=== PATIENT | female | born 1990 | race Caucasian/White ===

== ENCOUNTER 2021-12-20 19:00 | Emergency (ER) | payer OTHER, SELFPAY ==
--- OUTSIDE RECORDS SUMMARY | 2021-12-20 19:03 | XMS REPORT | Continuity of Care Document ---
:1990 Author Organization [facility] t Address [address] [place] [address] Care Team Providers Name Role Phone BOOKER Attending Clinician Unavailable DENIS Attending Clinician Unavailable DIRECTOR OF CUSTOMER ACQUISITION Attending Clinician Unavailable DIRECTOR OF CUSTOMER ACQUISITION Attending Clinician Unavailable Problems Condition Condition Condition Status Onset Resolution Last Treating Co mments Source Name Details Category Date Date Treatment Clinician Date Amenorrhea Amenorrhea Problem Active U T HL7.CCDAR2 Physic i ans Nausea and Nausea and Problem Active U T vomiting vomiting HL7.CCDAR2 Ph ysici in in ans Encounter Encounter Problem Active UT for for HL7.CCDAR2 Physic i confirmati confirmati an s on of on of test test result result with with physical physical examinatio examinatio n n Vaginal Vaginal Problem Active UT discharge discharge HL7.CCDAR2 Physici ans HGSIL on HGSIL on Problem Active UT Pap smear Pap smear HL7.CCDAR2 Physici ans Left knee Left knee Problem Active UT pain pain HL7.CCDAR2 Physic i ans Pes Pes Problem Active UT anserinus anserinus HL7.CCDAR2 Physici tendinitis tendinitis an s of left of left lower lower extremity extremity Instabilit Instabilit Problem Active U T y of left y of left HL7.CCDAR2 Physici knee joint knee joint an s Encounter Encounter Problem Active UT for for HL7.CCDAR2 Physic i supervisio supervisio an s n of other n of other normal normal , , third third trimester trimester Vaginal Vaginal Problem Active UT dryness dryness HL7.CCDAR2 Phys ici ans Genital Genital Problem Active UT warts warts HL7.CCDAR2 Physic i ans History of History of Problem Active U T HL7.CCDAR2 Ph ysici delivery delivery ans Problem Active U T care care HL7.CCDAR2 Physic i following following ans delivery delivery Problem Active U T anxiety anxiety HL7.CCDAR2 Phys ici ans Allergies, Adverse Reactions, Alerts This patient has no known allergies or adverse reactions. Social History Smoking Status Start Date Stop Date Source Former smoker [facility] Medications Ordered Filled Start Stop Current Ordering Indication Dosage Frequency Signature Comments Components Source Medication Medication Date Date Medication? Clinician (SIG) Name Name Esckathi Tuckeropra 2017-06 Yes COMFORT 1 QD TAKE 1 UT m Oxalate m Oxalate 2-10 UGHANZE TABLET Physici 10 MG Oral 10 MG Oral 00:00: M.D. DAILY. ans Tablet Tablet 00 Podofilox Podofilox Yes COMFORT Q0.5D APPLY UT 0.5 % 0.5 % 9-14 UGHANZE EVERY 12 Physic i External External 00:00: M.D. HOURS FOR ans Solution Solution 00 3 DAYS, STOP FOR 4 DAYS, THEN REPEAT CYCLE UP TO 4 TIMES Yes UT TABS TABS Physici ans Vital Signs Vital Name Observation Time Observation Value Comments Source BP Systolic 2018-06-06 09:21:00 124 mm[Hg] Location: RUE; [facility] sicians Position: Sitting BP Diastolic 2018-06-06 09:21:00 64 mm[Hg] [facility]: [facility]; [facility] Position: Sitting Height 2018-06-06 09:21:00 63 [in_us] [facility] Weight 2018-06-06 09:21:00 234 [lb_av] [facility] Body Mass Index 2018-06-06 09:21:00 41.45 kg/m2 [facility] Calculated Temperature 2018-06-06 09:21:00 98 [degF] Method: Oral [facility] Heart Rate 2018-06-06 09:21:00 63 /min [facility] O2 SAT 2018-06-06 09:21:00 99 % [facility] Body Mass Index 2018-05-27 11:33:00 41.63 kg/m2 [facility] Calculated Temperature 2018-05-27 11:33:00 98.7 [degF] Method: Oral [facility] Heart Rate 2018-05-27 11:33:00 97 /min [facility] O2 SAT 2018-05-27 11:33:00 99 % [facility] BP Systolic 2018-05-27 11:33:00 106 mm[Hg] [facility]; [facility] Position: Sitting BP Diastolic 2018-05-27 11:33:00 60 mm[Hg] [facility]; [facility] Position: Sitting Height 2018-05-27 11:33:00 63 [in_us] [facility] Weight 2018-05-27 11:33:00 235 [lb_av] [facility] BP Systolic 2018-04-18 11:43:00 118 mm[Hg] [facility]: LUE; [facility] Position: Sitting BP Diastolic 2018-04-18 11:43:00 72 mm[Hg] [facility]UE; [facility] Position: Sitting Height 2018-04-18 11:43:00 63 [in_us] [facility] Weight 2018-04-18 11:43:00 258.1875 [lb_av] [facility] Body Mass Index 2018-04-18 11:43:00 45.74 kg/m2 [facility] Calculated BP Systolic 2018-04-08 08:42:00 126 mm[Hg] [facility]: [facility]UE; [facility] Position: Sitting BP Diastolic 2018-04-08 08:42:00 78 mm[Hg] [facility]: RUE; [facility] Position: Sitting Height 2018-04-08 08:42:00 63 [in_us] [facility] Weight 2018-04-08 08:42:00 249 [lb_av] [facility] Body Mass Index 2018-04-08 08:42:00 44.11 kg/m2 [facility] Calculated BP Systolic 2018-04-01 08:43:00 134 mm[Hg] [facility]: LUE; [facility] Position: Sitting BP Diastolic 2018-04-01 08:43:00 74 mm[Hg] [facility]: L[facility]; [facility] Position: Sitting Height 2018-04-01 08:43:00 63 [in_us] [facility] Weight 2018-04-01 08:43:00 247.375 [lb_av] [facility] Body Mass Index 2018-04-01 08:43:00 43.82 kg/m2 [facility] Calculated BP Systolic 2018-03-25 15:04:00 120 mm[Hg] Location: LUE; [facility] Position: Sitting BP Diastolic 2018-03-25 15:04:00 80 mm[Hg] [facility]: [facility]; [facility] Position: Sitting Height 2018-03-25 15:04:00 63 [in_us] [facility] Weight 2018-03-25 15:04:00 248 [lb_av] [facility] Body Mass Index 2018-03-25 15:04:00 43.93 kg/m2 [facility] Calculated BP Systolic 2018-03-11 11:15:00 116 mm[Hg] [facility]: L[facility]; [facility] Position: Supine BP Diastolic 2018-03-11 11:15:00 72 mm[Hg] [facility]; [facility] Position: Supine Height 2018-03-11 11:15:00 63 [in_us] [facility] Weight 2018-03-11 11:15:00 247 [lb_av] [facility] Body Mass Index 2018-03-11 11:15:00 43.75 kg/m2 [facility] Calculated BP Systolic 2018-01-28 08:22:00 128 mm[Hg] [facility]: LUE; [facility] Position: Sitting BP Diastolic 2018-01-28 08:22:00 78 mm[Hg] Location: LUE; [facility] Position: Sitting Height 2018-01-28 08:22:00 63 [in_us] [facility] Weight 2018-01-28 08:22:00 251 [lb_av] [facility] Body Mass Index 2018-01-28 08:22:00 44.46 kg/m2 [facility] Calculated BP Systolic 2017-12-31 08:32:00 124 mm[Hg] Location: RUE; [facility] Position: Sitting BP Diastolic 2017-12-31 08:32:00 62 mm[Hg] [facility]: [facility]UE; [facility] Position: Sitting Height 2017-12-31 08:32:00 63 [in_us] [facility] Weight 2017-12-31 08:32:00 252.6 [lb_av] [facility] Body Mass Index 2017-12-31 08:32:00 44.75 kg/m2 [facility] Calculated Temperature 2017-12-31 08:32:00 98.2 [degF] Method: Oral [facility] BP Systolic 2017-12-03 08:42:00 120 mm[Hg] [facility]: L[facility]; [facility] Position: Sitting BP Diastolic 2017-12-03 08:42:00 74 mm[Hg] [facility]: [facility]; [facility] Position: Sitting Height 2017-12-03 08:42:00 63 [in_us] [facility] Weight 2017-12-03 08:42:00 247.25 [lb_av] [facility] Body Mass Index 2017-12-03 08:42:00 43.8 kg/m2 [facility] Calculated BP Systolic 2017-11-05 08:42:00 130 mm[Hg] Location: LUE; [facility] Position: Sitting BP Diastolic 2017-11-05 08:42:00 80 mm[Hg] [facility]: [facility]; [facility] Position: Sitting Height 2017-11-05 08:42:00 63 [in_us] [facility] Weight 2017-11-05 08:42:00 247 [lb_av] [facility] Body Mass Index 2017-11-05 08:42:00 43.75 kg/m2 [facility] Calculated Temperature 2017-11-05 08:42:00 98.7 [degF] Method: Oral [facility] BP Systolic 2017-10-08 10:16:00 126 mm[Hg] Location: RUE; [facility] Position: Sitting BP Diastolic 2017-10-08 10:16:00 80 mm[Hg] [facility]: [facility]UE; [facility] Position: Sitting Height 2017-10-08 10:16:00 63 [in_us] [facility] Weight 2017-10-08 10:16:00 251 [lb_av] [facility] Body Mass Index 2017-10-08 10:16:00 44.46 kg/m2 [facility] Calculated Temperature 2017-10-08 10:16:00 98.7 [degF] Method: Oral [facility] BP Systolic 2017-10-05 14:55:00 118 mm[Hg] [facility]: LUE; [facility] Position: Sitting BP Diastolic 2017-10-05 14:55:00 75 mm[Hg] [facility]: L[facility]; [facility] Position: Sitting Height 2017-10-05 14:55:00 63 [in_us] [facility] Weight 2017-10-05 14:55:00 253 [lb_av] [facility] Body Mass Index 2017-10-05 14:55:00 44.82 kg/m2 [facility] Calculated BP Systolic 2017-09-10 13:48:00 130 mm[Hg] Location: [facility]; [facility] Position: Sitting BP Diastolic 2017-09-10 13:48:00 74 mm[Hg] Location: [facility]; [facility] Position: Sitting Height 2017-09-10 13:48:00 63 [in_us] [facility] Weight 2017-09-10 13:48:00 252 [lb_av] [facility] Body Mass Index 2017-09-10 13:48:00 44.64 kg/m2 [facility] Calculated Temperature 2017-09-10 13:48:00 98 [degF] Method: Oral [facility] Procedures Procedure Date / Time Performed Performing Clinician Sourc e [QLH] BV/ VAGINITIS PANEL 2018-04-01 00:00:00 [facility] DNA PROBE AFFIRM [QH] STREPTOCOCCUS, GROUP B 2018-03-25 00:00:00 [facility] CULTURE (Genital Strep Screen) [QH] HIV AB, HIV 1/2, EIA, 2018-03-25 00:00:00 [facility] WITH REFLEXES [QLH] GLUCOSE TOLERANCE 2018-02-03 00:00:00 [facility] TEST, 4 SPECIMENS [QLH] GLUCOSE, GESTATIONAL 2018-01-28 00:00:00 [facility] SCREEN (50G)-130 CUTOFF [QLH] CBC (INCLUDES 2018-01-28 00:00:00 [facility] DIFF/PLT) [U] XRAY KNEE 4 OR MORE VWS 2017-10-21 00:00:00 [facility] LEFT [id number] [H] Obstetrics Panel 2017-09-10 00:00:00 [facility] (includes CBCw/Diff,RPR, HbsAg,RubIgG,Type and Screen) [QH] HIV AB, HIV 1/2, EIA, 2017-09-10 00:00:00 [facility] WITH REFLEXES [QLH] CULTURE, URINE, 2017-09-10 00:00:00 [facility] ROUTINE [QLH] URINALYSIS, COMPLETE 2017-09-10 00:00:00 [facility] [QL] CYSTIC FIBROSIS SCREEN 2017-09-10 00:00:00 [facility] [H] Pap Liquid-based w/ 2017-09-10 00:00:00 [facility] GC/CT Reflex HPV [QLH] BV/ VAGINITIS PANEL 2017-09-10 00:00:00 [facility] DNA PROBE AFFIRM History of section [facility] 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 2018-05-27 2018-05-27 Teetee CELESTE [facility] [place] Women[facility] [id number] [place] 11:30:00 11:30:00 t; COMFORT, [facility] Anu Sellers M.D. 2018-05-06 2018-05-06 Teetee CELESTE [facility] [place] Women's [id number] [place] 10:00:00 10:00:00 t; LEANNA, [facility] Anu Sellers M.D. 2018-04-18 2018-04-18 Teetee CELESTE [facility] [place] Women's [id number] [place] 11:30:00 11:30:00 t; LEANNA [facility] Sellers M.D. 2018-04-08 2018-04-08 Teetee CELESTE [facility] [place] Women's [id number] [place] 08:30:00 08:30:00 t; LEANNA [facility] S[facility] M.D. 2018-04-01 2018-04-01 Teetee CELESTE [facility] [place] Women's [id number] [place] 08:30:00 08:30:00 t; LEANNA [facility] Sellers M.D. 2018-03-25 2018-03-25 Teetee CELESTE [facility] [place] Women's [id number] [place] 15:30:00 15:30:00 t; COMFORT, [facility] ci Anu CELESTE M.D. 2018-03-11 2018-03-11 Appointivon DIAMONDANDRZEJ [facility] [place] Women's [id number] [place] 11:15:00 11:15:00 t; COMFORT, [facility] ci Anu CELESTE [facility] javier RAM M.D. 2018-03-04 2018-03-04 Appointivon DIAMONDANDRZEJ, [facility] [id number] [place] 15:45:00 15:45:00 t; COMFORT, Physi Anu Sellers M.D. 2018-01-28 2018-01-28 Asaivon BOOKER, [facility] [place] Women's [id number] [place] 08:45:00 08:45:00 t; COMFORT, [facility] Anu CELESTE M.D. 2017-12-31 2017-12-31 Teetee CELESTE, [facility] [place] Women's [id number] [place] 08:30:00 08:30:00 t; COMFORT, [facility] Anu CELESTE M.D. 2017-12-03 2017-12-03 Teetee CELESTE, [facility] [id number] [place] 08:45:00 08:45:00 t; COMFORT, [facility] ci Anu CELESTE M.D. 2017-11-16 2017-11-16 Appointivon BARRIOS [facility] [place] Orthopedics [id number] [place] 10:15:00 10:15:00 t; SALUD BARRIOS M.D. at [facility] BRANNON M.D. ans 2017-11-16 2017-11-16 Appointivon BARRIOS, [facility] [id number] [place] 08:45:00 08:45:00 t; SALUD BARRIOS M.D. rufina BRANNON M.D. ans 2017-11-05 2017-11-05 Teetee CELESTE, [facility] [place] Women's [id number] [place] 09:00:00 09:00:00 t; COMFORT, [facility] Phys[facility] ci Anu CELESTE Rochertfrancisco javier RAM M.D. 2017-10-22 2017-10-22 Appointmen [facility] Orthopedics [id number] [place] 13:00:00 13:00:00 t; SALUD BARRIOS M.D. at [facility] Elena BRANNON. [facility] 2017-10-18 2017-10-18 Appointmen DIRECTOR OF CUSTOMER ACQUISITION, [facility] [id number] [place] 11:30:00 11:30:00 t; DIRECTOR OF CUSTOMER ACQUISITION[facility] 2017-10-18 2017-10-18 Appointmen DIRECTOR OF CUSTOMER ACQUISITION, [facility] [id number] [place] 10:45:00 10:45:00 t; DIRECTOR OF CUSTOMER ACQUISITION, COUNSELOR Radames hysizarina COUNSELOR [facility] 2017-10-08 2017-10-08 [facility] [id number] [place] 10:00:00 10:00:00 t; COMFORT, [facility] Physi ci Anu CELESTE [facility] guido RAM M.D. 2017-10-05 2017-10-05 [facility] [id number] [place] 15:30:00 15:30:00 t; COMFORT, [facility] Physi ci Anu CELESTE [place] guido RAM M.D. 2017-09-10 2017-09-10 [facility] [id number] [place] 14:15:00 14:15:00 t; COMFORT, Physi Anu Sellers M.D. Results Test Description Test Time Test Comments Results Result Comments Source [[facility]] BV/ VAGINITIS PANEL DNA PROBE AFFIRM 2018-04-01 11:00: 01 Test Item Value Reference Range Interpretation Comme nts Trichomonas vaginalis DNA (test code = 58778-2) Negative Negati ve Gardnerella vaginalis DNA; Abnormal (test code = 6410-5) Positive Negative A Anabella sp. DNA; Abnormal (test code = 65126-8) Positive Negati ve A [facility][QH] STREPTOCOCCUS, GROUP B CULTURE (Genital Strep Screen) 2018-03-25 15:35:01 Test Item Value Reference Range Interpretation Comments FINAL REPORT (test No Beta-Hemolytic code = FINAL REPORT) Streptococci Isolated [facility][QH] HIV AB, HIV 1/2, EIA, WITH [id number] 14:33:01 Test Item Value Reference Range Interpretation Comments HIV Ag/Ab 4th Gen Negative Negative HIV test r esults should be (test code = considered posi tive only 85016-0) when both the s creening andthe confirma tory tests are positive. A negative confirmatory te st in patientswith a positive screening test does not exclude HIV inf ection. If clincallywarran wilber, an HIV RNA quantitativ e test should be order ed. [facility][QL] CBC (INCLUDES DIFF/PLT)2018-01-28 10:39:01 Test Item Value Reference Range Interpretation Comments WBC; Above High Threshold (test 12.0 {K/CMM} 3.7-10.4 code = 6690-2) RBC; Below Low Threshold (test 3.71 {M/CMM} 4.20-5.40 code = 789-8) Hgb; Below Low Threshold (test 11.6 g/dl 12.0-16.0 code = 718-7) Hct; Below Low Threshold (test 32.9 % 36.0-48.0 code = 93265-8) MCV (test code = 787-2) 88.6 fL 80.0-98.0 MCH; Above High Threshold (test 31.3 pg 27.0-31.0 code = 785-6) MCHC (test code = 786-4) 35.3 g/dl 32.0-36.0 RDW (test code = 788-0) 14.5 % 11.5-14.5 Platelet (test code = 22218-0) 224 {K/CMM} 133-450 Mean Platelet Volume; Above High 11.4 fL 7.4-10.4 Threshold (test code = 33606-7) [facility]] [id number] 10:39:01 Test Item Value Reference Range Interpretation Comments Segmented Neutrophils; Above High 76.6 % 45.0-75.0 Threshold (test code = 77916-2) Monocytes (test code = 20418-2) 4.8 % 2.0-12.0 Lymphocytes; Below Low Threshold 16.7 % 20.0-40.0 (test code = 99984-3) Eosinophils (test code = 59798-4) 1.5 % 0.0-4.0 Basophils (test code = 706-2) 0.4 % 0.0-1.0 Segs-Bands #; Above High 9.2 {K/CMM} 1.5-8.1 Threshold (test code = 96486-0) Lymphocytes # (test code = 2.0 {K/CMM} 1.0-5.5 81960-1) Monocytes # (test code = 68377-7) 0.6 {K/CMM} 0.0-0.8 Eosinophils # (test code = 0.2 {K/CMM} 0.0-0.5 42575-4) [facility][QLH] GLUCOSE, GESTATIONAL SCREEN (50G)-130 [id number] 10:39:01 Test Item Value Reference Range Interpretation Comments Glucose Challenge; Above High 165.0 mg/dl <=140.0 Threshold (test code = 1504-0) [facility][O] Urine Test (in office)2017-09-10 13:59:00 Test Item Value Reference Range Interpretation Comments Test, Urine; Abnormal positive A (test code = 2106-3) [facility][H] Pap Liquid-based w/ GC/CT Reflex [id number] 00:00:01 Test Item Value Reference Range Interpretation Comments Source Pap (test code CERVIX = Source Pap) Date of LMP (test code NONE = Date of LMP) Previous Treatment NONE (test code = Previous Treatment) Pap Diagnosis (test Comment A EPITHELI AL CELL code = Pap Diagnosis) ABNORM ALITY.HIGH-GRADE SQUAMOUS INTRAEPITHELIAL LESION (HGSIL); MODERA TE DYSPLASIA ISPRE SENT. Specimen Adequacy Comment Satisfacto ry for (test code = Specimen evalua tion. Adequacy) Endocervical an d/or squamous metaplasticcell s (endocervical component) are present. Pap Performed By (test Comment Leroy Castellano, code = Pap Performed [facility] hnologist By) (ASCP)Reviewed at: [facility] [id number] [facility], [place] [address] Pap Electronically Comment Tyler Matute, Signed by (test code = Radames HUGGINS athologist Pap Electronically Signed by) Pathologist Provided Comment R87.613 ICD10 (test code = Pathologist Provided ICD10) Pap Comment (test code Comment The P ap smear is a = Pap Comment) screening viki t designed to aid in thede tection of premalignant and malignant condi tions of theuterine cerv ix. It is not a diagno stic procedure andsh ould not be used as the sole means of detect ing cervicalcancer. Both false-positive and false-negative reports dooccur. Alex Methodology (test Comment This liquid based code = Alex ThinPrep(R) pap test Methodology) was screened wi ththe use of an image guided system. C trachomatis by RISA Negative Negative (test code = C trachomatis by RISA) N gonorrhea by RISA Negative Negative Source... ..........Cerv (test code = N ixLMP / Prev gonorrhea by RISA) Treat...No Evan. of containers..01 ThinPrep VialPerformed A t: [place] [facility] [id number] [place], [place] [id number] jaspreet Cueto MD Ph:[phone] rformed At: [facility] [id number] [place], [place] [id number] lorenzo Cueto MD Ph:[phone] [facility]] BV/ VAGINITIS PANEL DNA PROBE [id number] 00:00:01 Test Item Value Reference Range Interpretation Comments Trichomonas vaginalis DNA (test code Negative Negative = 67595-0) Gardnerella vaginalis DNA (test code Negative Negative = 82369-8) Anabella sp. DNA (test code = Negative Negative 14282-1) Gardnerella vaginalis DNA (test code Negative Negative = 6410-5) Anabella sp. DNA (test code = Negative Negative 93093-9) [facility]
[2021-12-20 20:10] LABS: Urine Blood Negative (Negative); Urine Glucose Negative (Negative); Urine Protein Trace (Negative); Urine Specific Gravity >=1.030 (1.005-1.030); Urine pH 5.5 (5.0-7.0)
[2021-12-20] MEDS ORDERED: MORPHINE 4 MG/ML SYR ONE (20:23)
[2021-12-20 20:24] LABS: Absolute Lymphocytes (CBC) 2.6 K/uL (0.7-4.9); Hematocrit 40.9 % (36.0-45.0); Lymphocytes % 23.2 % (15.3-44.8); MPV 9.8 fL (7.6-11.3); RBC Red Blood Cell Count 4.64 M/uL (3.86-4.86)
[2021-12-20] MEDS ORDERED: ONDANSETRON 4 MG/2 ML VIAL ONE (20:24)
[2021-12-20] MEDS ORDERED: NA CHLORIDE 0.9% 1,000 ML ONE (20:24)
[2021-12-20 20:42] LABS: Albumin 3.8 g/dL (3.4-5.0); Bilirubin Total 0.2 mg/dL (0.2-1.0); Protein, Total 7.5 g/dL (6.4-8.2)
[2021-12-20 21:07] LABS: Urine Amorphous Sediment 2+ /HPF (NONE SEEN); Urine Bacteria >50 /HPF (<20); Urine RBC <5 /HPF (NONE SEEN)
[2021-12-20 21:08] LABS: Calcium Oxalate Crystals- Ur PRESENT (NONE SEEN)
--- NOTE | 2021-12-20 21:33 | RAD REPORT ---
EXAM DESCRIPTION: CTAbdomen Pelvis W Contrast - 12/20/2021 9:15 pm CLINICAL HISTORY: Abdominal pain, acute, nonlocalized COMPARISON: No comparisons TECHNIQUE: CT of the abdomen and pelvis was performed with contrast. All CT scans are performed using dose optimization technique as appropriate and may include automated exposure control or mA/KV adjustment according to patient size. FINDINGS: Lower chest: No acute abnormality. Liver: No acute abnormality or suspicious lesions. Biliary: No biliary ductal dilatation. Stomach: No significant focal abnormality. Duodenum: No significant focal abnormality. Pancreas: No significant abnormality. Spleen: No significant abnormality. Adrenal: No suspicious lesions. Kidney/ureter: No hydronephrosis. No renal calculi. Too small to characterize and/or benign appearing renal lesions are noted. Retroperitoneum: No retroperitoneal adenopathy. Vascular: No aneurysm. Bowel: Normal appendix. No bowel obstruction. Peritoneum: 2.6 cm x 1.8 cm soft tissue nodule in the right lower quadrant lateral ventral hernia. Bladder: Grossly unremarkable. Reproductive: No adnexal masses. Bones: No acute fracture. Other: n/a IMPRESSION: Lateral ventral hernia containing small bowel. No bowel obstruction. Small soft tissue i mplant within the hernia may represent fat necrosis.
[2021-12-20] MEDS ORDERED: CEFTRIAXONE 1000 MG/VIAL ONE (21:34)
--- NOTE | 2021-12-20 22:17 | EDPHYS ---
Physician Documentation [facility] Name: Mary Jane Hurt Age: 31 yrs Sex: Female : 1990 Arrival Date: 12/20/2021 Time: 19:05 Bed 9 Private MD: ED Physician Roni Magallanes HPI: 12/20 19:58 This 31 yrs old Female presents to ER via Ambulatory with complaints of Abdominal Pain. mh7 19:58 The patient presents with abdominal pain right lower quadrant. Onset: The mh7 symptoms/episode began/occurred this morning, today. The symptoms do not radiate. Associated signs and symptoms: Pertinent positives: diarrhea, dysuria, Pertinent negatives: nausea and vomiting, anorexia, blood in stools, chest pain, constipation, fever, headache, hematuria, palpitations, shortness of breath, vaginal discharge, vomiting blood. The symptoms are described as intermittent, vague, waxing/waning. Modifying factors: The symptoms are alleviated by nothing, the symptoms are aggravated by food. Severity of pain: At its worst the pain was moderate today, in the emergency department the pain is unchanged. [employer]: 19:25 LMP 12/15/2021 ld1 Historical: - Allergies: 19:25 No Known Allergies; ld1 - PMHx: 19:25 None; ld1 - PSHx: 19:25 section; ld1 - Immunization history:: Adult Immunizations up to date, Client reports receiving the 2nd dose of the Covid vaccine. - Social history:: Smoking status: Patient reports the use of cigarette tobacco products, smokes one pack cigarettes per day. Patient/guardian denies using alcohol. ROS: 19:58 Constitutional: Negative for fever, chills, and weight loss, Eyes: Negative for injury, mh7 pain, redness, and discharge, ENT: Negative for injury, pain, and discharge, Neck: Negative for injury, pain, and swelling, Cardiovascular: Negative for chest pain, palpitations, and edema, Respiratory: Negative for shortness of breath, cough, wheezing, and pleuritic chest pain, Back: Negative for injury and pain, MS/Extremity: Negative for injury and deformity, Skin: Negative for injury, rash, and discoloration, Neuro: Negative for headache, weakness, numbness, tingling, and seizure, Psych: Negative for depression, anxiety, suicide ideation, homicidal ideation, and hallucinations, Allergy/Immunology: Negative for hives, rash, and allergies, Endocrine: Negative for neck swelling, polydipsia, polyuria, polyphagia, and marked weight changes, Hematologic/Lymphatic: Negative for swollen nodes, abnormal bleeding, and unusual bruising. Exam: 19:58 Head/Face: Normocephalic, atraumatic. Eyes: Pupils equal round and reactive to light, mh7 extra-ocular motions intact. Lids and lashes normal. Conjunctiva and sclera are non-icteric and not injected. Cornea within normal limits. Periorbital areas with no swelling, redness, or edema. Neck: Trachea midline, no thyromegaly or masses palpated, and no cervical lymphadenopathy. Supple, full range of motion without nuchal rigidity, or vertebral point tenderness. No Meningismus. Chest/axilla: Normal chest wall appearance and motion. Nontender with no deformity. No lesions are appreciated. Cardiovascular: Regular rate and rhythm with a normal S1 and S2. No gallops, murmurs, or rubs. Normal PMI, no JVD. No pulse deficits. Respiratory: Lungs have equal breath sounds bilaterally, clear to auscultation and percussion. No rales, rhonchi or wheezes noted. No increased work of breathing, no retractions or nasal flaring. Back: No spinal tenderness. No costovertebral tenderness. Full range of motion. Skin: Warm, dry with normal turgor. Normal color with no rashes, no lesions, and no evidence of cellulitis. MS/ Extremity: Pulses equal, no cyanosis. Neurovascular intact. Full, normal range of motion. Neuro: Awake and alert, GCS 15, oriented to person, place, time, and situation. Cranial nerves II-XII grossly intact. Motor strength 5/5 in all extremities. Sensory grossly intact. Cerebellar exam normal. Normal gait. Psych: Awake, alert, with orientation to person, place and time. Behavior, mood, and affect are within normal limits. 19:58 Constitutional: The patient appears in no acute distress, alert, awake, uncomfortable. 19:58 Abdomen/GI: Inspection: obese Bowel sounds: normal, in all quadrants, Palpation: moderate abdominal tenderness, in the epigastric area, right upper quadrant and right lower quadrant, mass, is not appreciated, rebound tenderness, is not appreciated, voluntary guarding, is not appreciated, involuntary guarding, is not appreciated, no appreciated organomegaly, Indicators: McBurney's point is not tender, Gupta's sign is negative, Rovsing's sign is negative, Obturator sign is negative, Psoas sign is negative, Liver: no appreciated palpable abnormalities, Hernia: not appreciated. Vital Signs: 19:24 BP 127 / 75; Pulse 76; Resp 18; Temp 98.1(TE); Pulse Ox 99% on R/A; Weight 97.52 kg; ld1 Height 5 ft. 3 in. (160.02 cm); Pain 8/10; 20:24 BP 105 / 72; Pulse 83; Resp 18 S; Pulse Ox 100% on R/A; Pain 8/10; as6 21:35 BP 111 / 92; Pulse 73; Resp 18 S; Pulse Ox 100% on R/A; as6 22:25 BP 105 / 75; Pulse 87; Resp 18 S; Pulse Ox 100% on R/A; as6 19:24 Body Mass Index 38.08 (97.52 kg, 160.02 cm) ld1 MDM: 22:11 Differential diagnosis: appendicitis, bowel obstruction, cholecystitis, Cholelithiasis, mh7 diverticulitis, gastritis, gastroesophageal reflux disease, Irritable bowel syndrome, non-specific abd pain, pancreatitis, Peptic Ulcer Disease, Pyelonephritis, Ureterolithiasis, urinary tract infection. Data reviewed: vital signs, nurses notes, lab test result(s), CBC, electrolytes, urinalysis, UPT: negative radiologic studies, CT scan. Data interpreted: Pulse oximetry: on room air is 100 %. Interpretation: normal. Counseling: I had a detailed discussion with the patient and/or guardian regarding: the historical points, exam findings, and any diagnostic results supporting the discharge/admit diagnosis, lab results, radiology results, the need for outpatient follow up, a general surgeon, to return to the emergency department if symptoms worsen or persist or if there are any questions or concerns that arise at home. Response to treatment: the patient's symptoms have resolved after treatment, the patient's blood pressure is in an acceptable range, mental status has returned to baseline, the patient no longer shows bradycardia, the patient is not short of breath, the patient is not tachycardic, the patient's pain is gone, the patient's temperature has normalized. Physician consultation: Travis Lucia MD was contacted at 21:45, regarding patient's condition, and will see patient in office. 22:17 Patient medically screened. [facility] 12/20 19:52 Order name: CBC with Diff; Complete Time: 20:35 [facility] 12/20 19:52 Order name: CMP; Complete Time: 21:10 [facility] 12/20 19:52 Order name: Lipase; Complete Time: 21:10 [facility] 12/20 20:10 Order name: Urine Dipstick-Ancillary; Complete Time: 20:35 EDMS 12/20 20:18 Order name: Urine Microscopic Only; Complete Time: 21:10 vc1 12/20 19:52 Order name: CT Abd/Pelvis - IV Contrast Only; Complete Time: 21:41 [facility] 12/20 19:52 Order name: IV Saline Lock; Complete Time: 20:04 [facility] 12/20 19:52 Order name: Labs collected and sent; Complete Time: 20:05 [facility] 12/20 20:35 Order name: Urine Culture [facility] 12/20 19:52 Order name: Urine Dipstick-Ancillary (obtain specimen); Complete Time: 20:05 [facility] 12/20 19:52 Order name: Urine Test (obtain specimen); Complete Time: 20:05 [facility] Administered Medications: 20:24 Drug: NS 0.9% 1000 ml Route: IV; Rate: 1 bolus; Site: right antecubital; as6 22:26 Follow up: Response: No adverse reaction; IV Status: Completed infusion; IV Intake: as6 1000ml 20:24 Drug: Zofran (Ondansetron) 4 mg Route: IVP; Site: right antecubital; as6 22:26 Follow up: Response: No adverse reaction as6 20:24 Drug: morphine 4 mg Route: IVP; Infused Over: 4 mins; Site: right antecubital; as6 22:26 Follow up: Response: No adverse reaction; Pain is decreased as6 21:35 Drug: Rocephin (cefTRIAXone) 1 grams Route: IV; Rate: per protocol; Site: right as6 antecubital; 22:27 Follow up: Response: No adverse reaction; IV Status: Completed infusion; IV Intake: [id number] Disposition Summary: 12/20/21 22:17 Discharge Ordered Location: Home [facility] Problem: an ongoing problem [facility] Symptoms: have improved [facility] Condition: Stable [facility] Diagnosis - Ventral hernia without obstruction or gangrene [facility] - UTI/ Urinary tract infection, site not specified [facility] Followup: [facility] - With: Private Physician - When: 1 - 2 days - Reason: Worsening of condition, Recheck today's complaints, Continuance of care, Re-evaluation by your physician Followup: [facility] - With: Travis Lucia MD - When: 1 - 2 days - Reason: Worsening of condition, Further diagnostic work-up, Recheck today's complaints Discharge Instructions: - Discharge Summary Sheet [facility] - Urinary Tract Infection, Adult, [id number] [facility] - Hernia, Adult, [id number] [facility] - Ventral Hernia [facility] Forms: - Medication Reconciliation Form [facility] - Thank You Letter [facility] - Antibiotic Education [facility] - Prescription Opioid Use [facility] Prescriptions: - Cipro 500 mg Oral Tablet - take 1 tablet by ORAL route every 12 hours for 10 days; 20 tablet; Refills: 0, [facility] Product Selection Permitted - dicyclomine 20 mg Oral Tablet - take 1 tablet by ORAL route 4 times per day As needed; 20 tablet; Refills: 0, [facility] Product Selection Permitted Signatures: Dispatcher [employer] Roni Cotton MD MD 7 Natalie Cruz, RN RN ld1 Cedric Martinez RN RN as6
--- NOTE | 2021-12-20 22:17 | ER ---
Nurse's Notes [facility] Name: Mary Jane Hurt Age: 31 yrs Sex: Female : 1990 Arrival Date: 12/20/2021 Time: 19:05 Bed 9 Private MD: Diagnosis: Ventral hernia without obstruction or gangrene;UTI/ Urinary tract infection, site not specified Presentation: 12/20 19:24 Chief complaint: Patient states: RLQ pain - I think I have a hernia. Some days it pops ld1 out and hurts. C/O RLQ pain. Coronavirus screen: At this time, the client does not indicate any symptoms associated with coronavirus-19. Ebola Screen: No symptoms or risks identified at this time. Initial Sepsis Screen: Does the patient meet any 2 criteria? No. Patient's initial sepsis screen is negative. Does the patient have a suspected source of infection? No. Patient's initial sepsis screen is negative. Risk Assessment: Do you want to hurt yourself or someone else? Patient reports no desire to harm self or others. Onset of symptoms was December 20, 2021. 19:24 Method Of Arrival: Ambulatory ld1 19:24 Acuity: SASKIA 3 ld1 Triage Assessment: 19:25 General: Appears in no apparent distress. comfortable, Behavior is calm, cooperative, ld1 appropriate for age. Pain: Complains of pain in right lower quadrant Pain does not radiate. Pain currently is 8 out of 10 on a pain scale. EENT: No signs and/or symptoms were reported regarding the EENT system. Neuro: Level of Consciousness is awake, alert, obeys commands, Oriented to person, place, time, situation. Cardiovascular: Capillary refill < 3 seconds Patient's skin is warm and dry. Respiratory: Airway is patent Respiratory effort is even, unlabored, Respiratory pattern is regular, symmetrical. GI: Abdomen is round non-distended, Reports lower abdominal pain. : No signs and/or symptoms were reported regarding the genitourinary system. Derm: No signs and/or symptoms reported regarding the dermatologic system. Musculoskeletal: No signs and/or symptoms reported regarding the musculoskeletal system. [employer]ING [employer]: 19:25 LMP 12/15/2021 ld1 Historical: - Allergies: 19:25 No Known Allergies; ld1 - PMHx: 19:25 None; ld1 - PSHx: 19:25 section; ld1 - Immunization history:: Adult Immunizations up to date, Client reports receiving the 2nd dose of the Covid vaccine. - Social history:: Smoking status: Patient reports the use of cigarette tobacco products, smokes one pack cigarettes per day. Patient/guardian denies using alcohol. Screenin:25 Abuse screen: Denies threats or abuse. Denies injuries from another. Nutritional as6 screening: No deficits noted. Tuberculosis screening: No symptoms or risk factors identified. Fall Risk None identified. Assessment: 21:35 Reassessment: Patient appears in no apparent distress at this time. Patient and/or as6 family updated on plan of care and expected duration. Pain level reassessed. Patient is alert, oriented x 3, equal unlabored respirations, skin warm/dry/pink. Patient states feeling better. Vital Signs: 19:24 BP 127 / 75; Pulse 76; Resp 18; Temp 98.1(TE); Pulse Ox 99% on R/A; Weight 97.52 kg; ld1 Height 5 ft. 3 in. (160.02 cm); Pain 8/10; 20:24 BP 105 / 72; Pulse 83; Resp 18 S; Pulse Ox 100% on R/A; Pain 8/10; as6 21:35 BP 111 / 92; Pulse 73; Resp 18 S; Pulse Ox 100% on R/A; as6 22:25 BP 105 / 75; Pulse 87; Resp 18 S; Pulse Ox 100% on R/A; as6 19:24 Body Mass Index 38.08 (97.52 kg, 160.02 cm) ld1 ED Course: 19:05 Patient arrived in ED. am2 19:25 Triage completed. ld1 19:25 Arm band placed on right wrist. ld1 19:29 Roni Magallanes MD is Attending Physician. mh7 19:30 Cedric Martinez, [place] is Primary Nurse. as6 20:04 CBC with Diff Sent. zm 20:04 CMP Sent. zm 20:05 Lipase Sent. zm 20:25 Bed in low position. Call light in reach. Side rails up X 1. Pulse ox on. NIBP on. as6 21:17 CT Abd/Pelvis - IV Contrast Only In Process Unspecified. EDMS 22:16 Travis Lucia MD is Referral Physician. mh7 22:25 No provider procedures requiring assistance completed. IV discontinued, intact, as6 bleeding controlled, No redness/swelling at site. Pressure dressing applied. Administered Medications: 20:24 Drug: NS 0.9% 1000 ml Route: IV; Rate: 1 bolus; Site: right antecubital; as6 22:26 Follow up: Response: No adverse reaction; IV Status: Completed infusion; IV Intake: as6 1000ml 20:24 Drug: Zofran (Ondansetron) 4 mg Route: IVP; Site: right antecubital; as6 22:26 Follow up: Response: No adverse reaction as6 20:24 Drug: morphine 4 mg Route: IVP; Infused Over: 4 mins; Site: right antecubital; as6 22:26 Follow up: Response: No adverse reaction; Pain is decreased as6 21:35 Drug: Rocephin (cefTRIAXone) 1 grams Route: IV; Rate: per protocol; Site: right as6 antecubital; 22:27 Follow up: Response: No adverse reaction; IV Status: Completed infusion; IV Intake: [id number] Medication: 22:26 VIS not applicable for this client. as6 Intake: 22:26 IV: 1000ml; Total: 1000ml. as6 22:27 IV: 10ml; Total: 1010ml. as6 Outcome: 22:17 Discharge ordered by . mh7 22:26 Discharged to home ambulatory, with family. as6 22:26 Condition: stable 22:26 Discharge instructions given to patient, Instructed on discharge instructions, follow up and referral plans. medication usage, Demonstrated understanding of instructions, follow-up care, medications, Prescriptions given X 2. 22:27 Patient left the ED. as6 Signatures: Dispatcher [employer] EDMS Joanna Marte Maurice, MD MD 7 Natalie Cruz RN RN ld1 Cedric Martinez RN RN as6 Joceline Beckham
[2021-12-20 23:24] VITALS: TEMP 98.1
[2021-12-20 23:25] VITALS: O2SAT 100
[2021-12-20 23:29] VITALS: BP 105/75
== END 2021-12-20 22:27 | disposition home or self-care (01) ==
LOC: ER 19:00
DX: K43.9 Ventral hernia without obstruction or gangrene (principal); N39.0 Urinary tract infection, site not specified; F17.210 Nicotine dependence, cigarettes, uncomplicated
CPT/HCPCS: 36415; 74177; 80053; 81003; 81015; 83690; 85025; 87086; 87088; 96361; 96365; 96375; 99284; J2405; J7030; Q9967